=== PATIENT | female | born 2000 | race African-American/Black ===

== ENCOUNTER 2024-06-06 09:27 | Emergency (ER) | payer OTHER, SELFPAY ==
--- NOTE | ~2024-06-06 | XR_ITS ---
EXAMINATION: XR FACIAL BONES CLINICAL INFORMATION: r cheeck/low orbit pain/imjury COMPARISON: None available. TECHNIQUE: 4 views of the facial bones were obtained. FINDINGS: No definite fracture or focal bony lesion. Orbits appear intact. Alveolar ridges appear intact. The mandible appears intact. No traumatic arches appear intact. Paranasal sinuses are normally aerated without air-fluid levels. Calvarium intact. Sella appears normal. Imaged upper cervical spine appears normal. TM joints normally aligned. No soft tissue abnormalities. XR/XR facial bones min 3V IMPRESSION: No acute findings identified. No fractures. Electronically signed by: Sumeet Orozco MD 06/06/2024 01:29 PM [facility]
[2024-06-06 09:45] VITALS: BP 125/89; PULSE 86; RESP 18; TEMP 36.6; O2SAT 100; BMI 18.2
--- NOTE | 2024-06-06 13:24 | ED_ITS ---
HPI - General Adult General Chief complaint: General Medical Stated complaint: Ran into wall - facial pain Time Seen by Provider: 06/06/24 11:48 Source: patient Mode of arrival: ambulatory Limitations: no limitations History of Present Illness ED Provider: Lisa Ansari NP HPI narrative: Patient is a 23 year old female presents emergency department for evaluation. She reports that about 4 days ago she accidentally ran into 1 of the contre[place] in her home with impact to the right side of her face. She denies any loss of consciousness. Denies use of anticoagulants or known coagulation disorders. She has continued to have a mild aching pain over her right cheek. She has not applied any ice to the area, she has not taken any OTC analgesics. She denies any pain to the eye or with movement of the eye. She denies any nasal discharge or congestion. She denies any dental pain. She is able to eat and drink without difficulty. Related Data Allergies Allergy/AdvReac Type Severity Reaction Status Date / Time animal dander Allergy Watery Eye Verified 06/06/24 09:46 peanut Allergy Itching Verified 06/06/24 09:46 Seasonal Allergies Allergy Watery Eye Verified 06/06/24 09:46 Review of Systems Review of Systems: Yes all other systems are reviewed and are negative PMFSH Past Medical History Attestation statement: The following information was validated with the patient. Source: old records reviewed Physical Exam ED Vital Signs: Vital Signs - 24 hr 06/06/24 09:45 06/06/24 15:19 Temperature 97.8 F 97.8 F Pulse Rate 86 86 Respiratory Rate 18 18 Blood Pressure 125/89 125/89 Pulse Oximetry 100 100 Oxygen Delivery Method Room Air Room Air BMI result Body Mass Index 18.2 Appearance: Alert.?Oriented to person, place and time. No acute distress.?Normal affect. Head: Normocephalic Eyes: Pupils equal, round and reactive to light. EOMI. Conjunctiva and sclera normal? No Prado sign noted. No raccoon eyes noted ENT: No septal hematoma, nares patent bilaterally. External auditory canal normal tympanic membrane pearly aguilar and intact bilaterally. Dentition normal, no fractured teeth. No lesions or lacerations of oropharynx. Uvula midline. Moist mucous membranes. Neck: Normal inspection.? Neck supple.??No palpable tenderness, step-off, deformities. CVS: Heart sounds normal. Normal heart rate and rhythm.? Pulses normal.?? Respiratory: No respiratory distress.? Lung sounds clear to auscultation bilaterally?? Skin: Skin warm and dry.? Normal skin color.? Extremities: No lower extremity edema.? Neuro: Moves all extremities spontaneously. Sensation intact bilaterally. CN II- XII intact. No focal neuro deficits. Medical Decision Making Medical Decision Making MDM Narrative: Patient is a 23 year old female who presents emergency department for evaluation after head injury as per HPI. Overall she is well-appearing, nontoxic, afebrile. No focal neurological deficits. No headache, no anticoagulants, no indication for emergent head CT, unlikely to have ICH, SDH, or skull fracture. XR of the facial bones is obtained in his without evidence of acute fracture. Extraocular movements are intact on the right, no concern for entrapment. No palpable deformities along the orbit. Low suspicion for fracture not seen on XR imaging, would defer CT of facial bones at this time. She has minimal tenderness. No septal hematoma. Dentition is normal. Advised conservative treatment. Outpatient follow-up with PCP. Advised worrisome signs and symptoms that would warrant re-evaluation emergency department. All questions answered. Stable for discharge. Differential Diagnosis Differential Diagnoses: The differential diagnosis associated with the presentation includes (See narrative above) Independent Interpretation I performed an independent interpretation of an: Plain X-Ray (No fracture) Radiology Impression Discussion of test interpretation with radiology: I have reviewed the radiologist's reading. Radiologist Impression: XR/XR facial bones min 3V IMPRESSION: No acute findings identified. No fractures. External Record Review External record reviewed: Outpatient record Tests considered The following testing was considered but not selected: See narrative above Prescription Management I considered prescription management with: Pain Medication (Acetaminophen/ibuprofen) Discharge Plan Discharge Clinical Impression: Facial contusion Patient Disposition: Home, Self-Care Instructions: Facial Contusion (ED) Additional Instructions: XR imaging today does not show any evidence of fracture. Apply ice to the areas of pain for 10-15 minutes 3-4 times daily. You can take ibuprofen 200 mg, 3 tablets (600mg) every 6-8 hours as needed for pain, in addition to Tylenol 500 mg, 2 tablets (1,000mg) every 4-6 hours as needed for pain, but not to exceed 3 doses daily (3,000mg).? Follow-up with your primary care doctor. Return to emergency department any new or worsening symptoms or concerns. Referrals: Elizabeth Paul MD [Primary Care Provider] - Interventions: ED Discharge Assessment Last Done: 06/06/24 15:19 Discharge Date/Time: 06/06/24 15:19 Print Language: Macedonian
[2024-06-06 15:19] VITALS: BP 125/89; PULSE 86; RESP 18; TEMP 36.6; O2SAT 100
== END 2024-06-06 15:19 | disposition home or self-care (01) ==
PROVIDERS: Emergency Provider Emergency Medicine; PCP Pediatrics
DX: S00.83XA Contusion of other part of head, initial encounter (principal); R51.9 Headache, unspecified; X58.XXXA Exposure to other specified factors, initial encounter; Y93.9 Activity, unspecified; Y92.89 Other specified places as the place of occurrence of the external cause; Y99.8 Other external cause status
CPT/HCPCS: 70150; 99282; 99283

== ENCOUNTER → 2024-06-06 12:25 | Outpatient (BNV) | payer OTHER, SELFPAY | PROVIDERS: Emergency Provider Emergency Medicine; PCP Pediatrics; Visit Provider Radiology Diagnostic Radiology | DX: S09.90XA Unspecified injury of head, initial encounter (principal); W22.01XA Walked into wall, initial encounter | CPT/HCPCS: 70150 ==